=== PATIENT | male | born 1980 | race Hispanic/Latino ===

== ENCOUNTER 2016-11-27 10:54 | Emergency (ER) | payer OTHER ==
[2016-11-27 12:04] LABS: BASO # 0.1 K/mm3 (0.0-0.2); BASO % 0.6 % (0.0-1.0); EOS # 0.1 K/mm3 (0.0-0.50); EOS % 1.2 % (0.0-3.0); LARGE UNSTAINED CELL # 0.2 K/mm3 (0.0-0.4); LARGE UNSTAINED CELL % 2.2 % (0.0-4.0); LYMPH # 2.7 K/mm3 (1.5-4.5); LYMPH % 27.2 % (24.0-44.0); MEAN CORPUSCULAR HEMOGLOBIN 30.3 pg (27.0-33.0); MEAN CORPUSCULAR HGB CONC 34.9 g/dl (32.0-36.5); MEAN CORPUSCULAR VOLUME 86.7 fl (80.0-96.0); MONO # 0.6 K/mm3 (0.0-0.8); NEUTROPHILS # 5.6 K/mm3 (1.8-7.7); NEUTROPHILS % 61.8 % (36.0-66.0); PLATELET COUNT, AUTOMATED 341 k/mm3 (150-450); RED CELL DISTRIBUTION WIDTH 12.7 % (11.5-14.5); WHITE BLOOD COUNT 9.1 K/mm3 (4.0-10.0)
--- NOTE | 2016-11-27 12:16 | REP ---
CHEST, PA AND LATERAL: 11/27/2016. Clinical history: 36-year-old with chest pain. Findings. There were no prior studies. The lungs are well inflated and without infiltrate, effusion, atelectasis or masses. There is no mediastinal or hilar contour abnormality. The heart is not enlarged. The aorta is intact. The airway intact. No pneumothorax or pneumomediastinum. Bones without focal lesion. No free air under the diaphragm. Impression: 1. No acute cardiopulmonary change. Signed by Lon Kent MD 11/27/2016 12:48 P
[2016-11-27 12:18] LABS: ANION GAP 6 MEQ/L (8-16); BLOOD UREA NITROGEN 16 MG/DL (7-18); CALCIUM LEVEL 9.1 MG/DL (8.5-10.1); CARBON DIOXIDE LEVEL 30 MEQ/L (21-32); CHLORIDE LEVEL 96 MEQ/L (98-107); GLOMERULAR FILTRATION RATE > 60.0 (>60); GLUCOSE, FASTING 109 MG/DL (70-105); SODIUM LEVEL 132 MEQ/L (136-145)
--- NOTE | 2016-11-27 12:35 | ECGEPIP ---
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
--- NOTE | 2016-11-27 13:28 | EDDOCDS ---
Physician Documentation [facility] Name: Robin Christine Age: 36 yrs Sex: Male : 1980 Arrival Date: 11/27/2016 Time: 10:54 Bed 5 Private MD: Disposition: 11/27/16 13:03 Discharged to Home/Self Care. Impression: Chest pain, unspecified. - Condition is Stable. - Discharge Instructions: Nonspecific Chest Pain. - Prescriptions for Aspirin 81 mg - take 1 tablet by ORAL route once daily; 90 tablet. - Medication Reconciliation, Local Pharmacy Hours form. - Follow up: Layo Butler MD; When: Call to arrange an appointment; Reason: Further diagnostic work-up, Recheck today's complaints, Continuance of care. Follow up: Private Physician; When: 2 - 3 days; Reason: Continuance of care. - Problem is an ongoing problem. - Symptoms are unchanged. Historical: - Allergies: no known allergies; - Home Meds: 1. naproxen 500 mg Oral tab 1 tab 2 times per day 2. hydrochlorothiazide 12.5 mg Oral tab 1 tab once daily 3. Claritin 10 mg Oral tab 1 tab once daily 4. lisinopril 20 mg Oral tab 1 tab once daily 5. Norvasc 10 mg Oral tab 1 tab once daily 6. Elavil 25 mg nightly - PMHx: Hypertension; - PSHx: right index finger; - Social history: Smoking status: Patient uses tobacco products, heavy tobacco smoker. No barriers to communication noted, The patient speaks fluent Upper Sorbian, Speaks appropriately for age, Ethnicity: or Preferred Language: Slovak. - Family history: Not pertinent. - : The pt / caregiver states he / she is not on anticoagulants. Home medication list is obtained from the patient. - Exposure Risk Screening:: None identified. Vital Signs: 11/27 11:10 BP 125 / 73; Pulse 100; Resp 16; Temp 98.8(O); Pulse Ox 99% on R/A; Weight 97.07 kg / mlb1 214 lbs (R); Height 5 ft. 8 in. (172.72 cm) (R); Pain 0/10; 11:10 Body Mass Index 32.54 (97.07 kg, 172.72 cm) mlb1 MDM: 11:17 Marine Structural Welder/Pulse Ox/q 30 min VS ordered. br1 11:17 IV Saline Lock ordered. br1 11:17 Rhythm Strip to chart ordered. br1 11:17 Undress patient appropriately for examination ordered. br1 11:18 Basic Metabolic Profile Ordered. EDMS 11:18 CBC with Diff Ordered. EDMS 11:18 Cardiac Injury Profile Ordered. EDMS 11:18 Troponin Ordered. EDMS 11:19 Chest, 2 View (pa\E\lat) Ordered. EDMS 11:19 ECG WITH READING ER PHYS+CARDIAG ordered. EDMS 12:46 Financial registration complete. mm15 12:57 [facility] Payment Agreement was scanned into [employer] and attached to record. mm15 Signatures: Dispatcher [employer] EDMS Devyn Denny, DIETETIC ASSISTANT DIETETIC ASSISTANT Chepe Larkin RN RN mlb1 Kam Dempsey MD MD br1 Aissatou Henry RN RN hs1 Kendra Woods mm15 The chart was reviewed and I authenticate all verbal orders and agree with the evaluation and treatment provided.Attachments: 12:57 [facility] Payment Agreement mm15 MTDD
--- NOTE | 2016-11-27 13:28 | EDDOCDS ---
Nurse's Notes [facility] Name: Vasquez Christine Age: 36 yrs Sex: Male : 1980 Arrival Date: 11/27/2016 Time: 10:54 Bed 5 Private MD: Diagnosis: Chest pain, unspecified Presentation: 11/27 10:57 Presenting complaint: Chest pain and SOB over a week ago none in the past week, mlb1 abnormal EKG on 11/11/16. Adult Sepsis Screening: The patient does not have new or worsening altered mentation. Patient's respiratory rate is less than 22. Systolic blood pressure is greater than 100. Patient has a qSOFA score of 0- Negative Sepsis Screen. Suicide/Homicide risk assessment- the patient denies having any suicidal and/or homicidal ideations and does not present with any other emotional, behavioral or mental health complaints. Status: Patient is not a community service officer or dependent. Transition of care: patient was not received from another setting of care. 10:57 Acuity: CORINNE Level 3 mlb1 10:57 Method Of Arrival: Walkin/Carried/Asstd mlb1 Triage Assessment: 11:03 General: Appears in no apparent distress, comfortable, Behavior is appropriate for age, mlb1 cooperative. Pain: Denies pain. Pt Declines HIV testing. Historical: - Allergies: no known allergies; - Home Meds: 1. naproxen 500 mg Oral tab 1 tab 2 times per day 2. hydrochlorothiazide 12.5 mg Oral tab 1 tab once daily 3. Claritin 10 mg Oral tab 1 tab once daily 4. lisinopril 20 mg Oral tab 1 tab once daily 5. Norvasc 10 mg Oral tab 1 tab once daily 6. Elavil 25 mg nightly - PMHx: Hypertension; - PSHx: right index finger; - Social history: Smoking status: Patient uses tobacco products, heavy tobacco smoker. No barriers to communication noted, The patient speaks fluent Maltese, Speaks appropriately for age, Ethnicity: or Preferred Language: Maori. - Family history: Not pertinent. - : The pt / caregiver states he / she is not on anticoagulants. Home medication list is obtained from the patient. - Exposure Risk Screening:: None identified. Screenin:38 Screening information is obtained from the patient. Fall risk: No risks identified. hs1 Assistance ADL's: requires no assistance with activities of daily living. Abuse/DV Screen: The patient / caregiver reports he/she is: not in a situation that causes fear, pain or injury. Nutritional screening: No deficits noted. Advance Directives: There is no active DNR order. home support is adequate. Assessment: 11:37 General: Appears in no apparent distress, comfortable, Behavior is appropriate for age, hs1 cooperative. Pain: Denies pain. Neurological: No deficits noted. Respiratory: Airway is patent Respiratory effort is even, unlabored, Respiratory pattern is regular, symmetrical, Breath sounds are clear bilaterally. GI: Denies diarrhea, nausea, vomiting. Derm: Skin is pink, warm & dry. normal. 12:40 General: Appears in no apparent distress, Behavior is appropriate for age, cooperative. hs1 Pain: Denies pain. Cardiovascular: Rhythm is regular. Respiratory: No deficits noted. 13:26 Reassessment: Patient appears in no apparent distress at this time. Patient states hs1 feeling better. Patient states symptoms have improved. Cardiovascular: Rhythm is regular Chest pain is denied. Vital Signs: 11:10 BP 125 / 73; Pulse 100; Resp 16; Temp 98.8(O); Pulse Ox 99% on R/A; Weight 97.07 kg [facility] (R); Height 5 ft. 8 in. (172.72 cm) (R); Pain 0/10; 11:10 Body Mass Index 32.54 (97.07 kg, 172.72 cm) [facility] ED Course: 10:55 Patient visited by Taiwo Bright PCA. jrd 10:55 Patient moved to [facility] 10:56 Patient visited by Taiwo Bright PCA. d 11:00 Triage Initiated mlb1 11:03 Patient visited by Chepe Foy, RN. mlb1 11:10 Patient visited by Chepe Foy, RN. mlb1 11:10 Patient moved to [facility] 11:40 Patient visited by Martin Petit. l1 11:40 EKG done. (by ED staff). Reviewed by Kam Dempsey MD. jml1 11:47 Basic Metabolic Profile Sent. hs1 11:47 CBC with Diff Sent. hs1 11:47 Cardiac Injury Profile Sent. hs1 11:47 Troponin Sent. hs1 11:48 The patient / caregiver is instructed regarding the plan of care and ED course. hs1 11:48 Inserted saline lock: 20 gauge in right antecubital area and blood collected. The hs1 patient tolerated the procedure well. 12:25 Patient name changed from Vasquez\S\\S\Christine\S\ to Vasquez\S\ \S\Christine. EDMS 12:27 Patient visited by Aissatou Henry RN. hs1 12:43 Devyn Denny FNP is [facility]. ke 12:43 Patient visited by Devyn Denny FNP. ke 12:43 Patient visited by Devyn Denny FNP. ke 12:47 EKG-ADULT Returned. EDMS 12:51 Chest, 2 View (pa\E\lat) Returned. EDMS 12:57 [facility] Payment Agreement was scanned into [email or web address] and attached to record. mm15 13:03 Layo Butler MD is Referral Physician. ke 13:26 Discontinued IV lock intact, bleeding controlled, pressure dressing applied, No hs1 redness/swelling at site. No procedures done that require assistance. Order Results: Lab Order: Basic Metabolic Profile; [facility]' 11/27/16 11:37 Test: GLUCOSE, FASTING; Value: 109; Range: 70-105; Abnormal: Above high normal; Units: MG/DL; Status: F Test: BLOOD UREA NITROGEN; Value: 16; Range: 7-18; Units: MG/DL; Status: F Test: CREATININE FOR GFR; Value: 1.20; Range: 0.70-1.30; Units: MG/DL; Status: F Test: GLOMERULAR FILTRATION RATE; Value: > 60.0; Range: >60; Status: F Test: SODIUM LEVEL; Value: 132; Range: 136-145; Abnormal: Below low normal; Units: MEQ/L; Status: F Test: POTASSIUM SERUM; Value: 4.0; Range: 3.5-5.1; Units: MEQ/L; Status: F Test: CHLORIDE LEVEL; Value: 96; Range: 98-107; Abnormal: Below low normal; Units: MEQ/L; Status: F Test: CARBON DIOXIDE LEVEL; Value: 30; Range: 21-32; Units: MEQ/L; Status: F Test: ANION GAP; Value: 6; Range: 8-16; Abnormal: Below low normal; Units: MEQ/L; Status: F Test: CALCIUM LEVEL; Value: 9.1; Range: 8.5-10.1; Units: MG/DL; Status: F Test Note: ; Units are mL/min/1.73 m2 Chronic Kidney Disease Staging per NKF: Stage I & II GFR >=60 Normal to Mildly Decreased Stage III GFR 30-59 Moderately Decreased Stage IV GFR 15-29 Severely Decreased Stage V GFR <15 Very Little GFR Left ESRD GFR <15 on INFORMATION TECHNOLOGY DATA ANALYST Lab Order: CBC with Diff; SPEC'M 11/27/16 11:37 Test: WHITE BLOOD COUNT; Value: 9.1; Range: 4.0-10.0; Units: K/mm3; Status: F Test: RED BLOOD COUNT; Value: 4.31; Range: 4.30-6.10; Units: M/mm3; Status: F Test: HEMOGLOBIN; Value: 13.1; Range: 14.0-18.0; Abnormal: Below low normal; Units: g/dl; Status: F Test: HEMATOCRIT; Value: 37.4; Range: 42.0-52.0; Abnormal: Below low normal; Units: %; Status: F Test: MEAN CORPUSCULAR VOLUME; Value: 86.7; Range: 80.0-96.0; Units: fl; Status: F Test: MEAN CORPUSCULAR HEMOGLOBIN; Value: 30.3; Range: 27.0-33.0; Units: pg; Status: F Test: MEAN CORPUSCULAR HGB CONC; Value: 34.9; Range: 32.0-36.5; Units: g/dl; Status: F Test: RED CELL DISTRIBUTION WIDTH; Value: 12.7; Range: 11.5-14.5; Units: %; Status: F Test: PLATELET COUNT, AUTOMATED; Value: 341; Range: 150-450; Units: k/mm3; Status: F Test: NEUTROPHILS %; Value: 61.8; Range: 36.0-66.0; Units: %; Status: F Test: LYMPH %; Value: 27.2; Range: 24.0-44.0; Units: %; Status: F Test: MONO %; Value: 7.0; Range: 0.0-5.0; Abnormal: Above high normal; Units: %; Status: F Test: EOS %; Value: 1.2; Range: 0.0-3.0; Units: %; Status: F Test: BASO %; Value: 0.6; Range: 0.0-1.0; Units: %; Status: F Test: LARGE UNSTAINED CELL %; Value: 2.2; Range: 0.0-4.0; Units: %; Status: F Test: NEUTROPHILS #; Value: 5.6; Range: 1.8-7.7; Units: K/mm3; Status: F Test: LYMPH #; Value: 2.7; Range: 1.5-4.5; Units: K/mm3; Status: F Test: MONO #; Value: 0.6; Range: 0.0-0.8; Units: K/mm3; Status: F Test: EOS #; Value: 0.1; Range: 0.0-0.50; Units: K/mm3; Status: F Test: BASO #; Value: 0.1; Range: 0.0-0.2; Units: K/mm3; Status: F Test: LARGE UNSTAINED CELL #; Value: 0.2; Range: 0.0-0.4; Units: K/mm3; Status: F Lab Order: Cardiac Injury Profile; [facility] 11/27/16 11:37 Test: CPK CREATINE PHOSPHOKINASE; Value: 131; Range: 39-308; Units: U/L; Status: F Test: CK-MB VALUE MASS; Value: 1.0; Range: 0.0-3.6; Units: NG/ML; Status: F Test: MB/CK RELATIVE INDEX; Value: 0.76; Range: < OR =4; Status: F Test Note: ; DIAGNOSIS CRITERIA MMB ng/ml Relative Index (RI) NON-AMI < or = 5 N/A [place] > 5 < or = 4 AMI > 5 > 4 Lab Order: Troponin; SPEC'11/27/16 11:37 Test: TROPONIN I; Value: < 0.02; Range: < 0.10; Units: NG/ML; Status: F Test Note: ; Troponin I Reference Interval for [employer] LOCI: 99th Percentile= 0.00-0.045 ng/ml Risk Stratification: <= 0.10 ng/ml Decreased Risk for Adverse Clinical Events. 0.10-1.50 ng/ml Increased Risk for Adverse Clinical Events. Evaluation of additional criterion and/or repeat testing in 2-6 hours is suggested to rule out myocardial damage. >= 1.50 ng/ml Indicative of Myocardial Injury. Radiology Order: Chest, 2 View (pa\E\lat) Test: Chest, 2 View (pa\E\lat) REASON FOR EXAMINATION: Chest Pain; CHEST, PA AND LATERAL: 11/27/2016.; ; Clinical history: 36-year-old with chest pain.; ; Findings. There were no prior studies. The lungs are well inflated and without; infiltrate, effusion, atelectasis or masses. There is no mediastinal or hilar; contour abnormality. The heart is not enlarged. The aorta is intact. The; airway intact. No pneumothorax or pneumomediastinum. Bones without focal; lesion. No free air under the diaphragm.; ; Impression:; ; 1. 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 ke 13:26 Discharge Assessment: Patient awake, alert and oriented x 3. No cognitive and/or hs1 functional deficits noted. Patient verbalized understanding of disposition instructions. patient administered narcotics - no. Discharged to home ambulatory, with correction guards accompanying. The following High Risk Discharge criteria are identified: None. Condition: stable. Discharge instructions given to patient, home theatre technician, Instructed on discharge instructions, follow up and referral plans. medication usage, Demonstrated understanding of instructions, medications, Pt was receptive of discharge instructions/ teaching. Prescriptions given X 1. No special radiology studies were completed. Property sent home with patient. 13:27 Patient left the ED. hs1 Signatures: Dispatcher [employer] EDMS Devyn Denny, WRECKING CAR DRIVER WRECKING CAR DRIVER Chepe Larkin RN RN mlb1 Aissatou Henry RN RN hs1 Martin Petit jml1 Kendra Woods mm15 Taiwo Bright PCA TRAINING TECHNICIAN jrd MTDD
--- NOTE | 2016-11-29 14:29 | EDDOCDS ---
Nurse's Notes [facility] Name: Vasquez Christine Age: 36 yrs Sex: Male : 1980 Arrival Date: 11/27/2016 Time: 10:54 Bed 5 Private MD: Diagnosis: Chest pain, unspecified Presentation: 11/27 10:57 Presenting complaint: Chest pain and SOB over a week ago none in the past week, mlb1 abnormal EKG on 11/11/16. Adult Sepsis Screening: The patient does not have new or worsening altered mentation. Patient's respiratory rate is less than 22. Systolic blood pressure is greater than 100. Patient has a qSOFA score of 0- Negative Sepsis Screen. Suicide/Homicide risk assessment- the patient denies having any suicidal and/or homicidal ideations and does not present with any other emotional, behavioral or mental health complaints. 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 Transition of care: patient was not received from another setting of care. 10:57 Acuity: CORINNE Level 3 mlb1 10:57 Method Of Arrival: Walkin/Carried/Asstd mlb1 Triage Assessment: 11:03 General: Appears in no apparent distress, comfortable, Behavior is appropriate for age, mlb1 cooperative. Pain: Denies pain. Pt Declines HIV testing. Historical: - Allergies: no known allergies; - Home Meds: 1. naproxen 500 mg Oral tab 1 tab 2 times per day 2. hydrochlorothiazide 12.5 mg Oral tab 1 tab once daily 3. Claritin 10 mg Oral tab 1 tab once daily 4. lisinopril 20 mg Oral tab 1 tab once daily 5. Norvasc 10 mg Oral tab 1 tab once daily 6. Elavil 25 mg nightly - PMHx: Hypertension; - PSHx: right index finger; - Social history: Smoking status: Patient uses tobacco products, heavy tobacco smoker. No barriers to communication noted, The patient speaks fluent Swazi, Speaks appropriately for age, Ethnicity: or Preferred Language: Japanese. - Family history: Not pertinent. - : The pt / caregiver states he / she is not on anticoagulants. Home medication list is obtained from the patient. - Exposure Risk Screening:: None identified. Screenin:38 Screening information is obtained from the patient. Fall risk: No risks identified. hs1 Assistance ADL's: requires no assistance with activities of daily living. Abuse/DV Screen: The patient / caregiver reports he/she is: not in a situation that causes fear, pain or injury. Nutritional screening: No deficits noted. Advance Directives: There is no active DNR order. home support is adequate. Assessment: 11:37 General: Appears in no apparent distress, comfortable, Behavior is appropriate for age, hs1 cooperative. Pain: Denies pain. Neurological: No deficits noted. Respiratory: Airway is patent Respiratory effort is even, unlabored, Respiratory pattern is regular, symmetrical, Breath sounds are clear bilaterally. GI: Denies diarrhea, nausea, vomiting. Derm: Skin is pink, warm & dry. normal. 12:40 General: Appears in no apparent distress, Behavior is appropriate for age, cooperative. hs1 Pain: Denies pain. Cardiovascular: Rhythm is regular. Respiratory: No deficits noted. 13:26 Reassessment: Patient appears in no apparent distress at this time. Patient states hs1 feeling better. Patient states symptoms have improved. Cardiovascular: Rhythm is regular Chest pain is denied. Vital Signs: 11:10 BP 125 / 73; Pulse 100; Resp 16; Temp 98.8(O); Pulse Ox 99% on R/A; Weight 97.07 kg [facility] (R); Height 5 ft. 8 in. (172.72 cm) (R); Pain 0/10; 11:10 Body Mass Index 32.54 (97.07 kg, 172.72 cm) [facility] ED Course: 10:55 Patient visited by Taiwo Bright PCA. jrd 10:55 Patient moved to [facility] 10:56 Patient visited by Taiwo Bright PCA. d 11:00 Triage Initiated mlb1 11:03 Patient visited by Chepe Foy, RN. mlb1 11:10 Patient visited by Chepe Foy, RN. mlb1 11:10 Patient moved to [facility] 11:40 Patient visited by Martin Petit. l1 11:40 EKG done. (by ED staff). Reviewed by Kam Dempsey MD. jml1 11:47 Basic Metabolic Profile Sent. hs1 11:47 CBC with Diff Sent. hs1 11:47 Cardiac Injury Profile Sent. hs1 11:47 Troponin Sent. hs1 11:48 The patient / caregiver is instructed regarding the plan of care and ED course. hs1 11:48 Inserted saline lock: 20 gauge in right antecubital area and blood collected. The hs1 patient tolerated the procedure well. 12:25 Patient name changed from Vasquez\S\\S\Christine\S\ to Vasquez\S\ \S\Christine. EDMS 12:27 Patient visited by Aissatou Henry RN. hs1 12:43 [facility] ke 12:43 Patient visited by Devyn Denny FNP. ke 12:43 Patient visited by Devyn Denny FNP. ke 12:47 EKG-ADULT Returned. EDMS 12:51 Chest, 2 View (pa\E\lat) Returned. EDMS 12:57 [facility] Payment Agreement was scanned into [employer] and attached to record. mm15 13:03 Layo Butler MD is Referral Physician. ke 13:26 Discontinued IV lock intact, bleeding controlled, pressure dressing applied, No hs1 redness/swelling at site. No procedures done that require assistance. 15:10 T-Sheet-- Draft Copy was scanned into [employer] and attached to record. gb 15:39 ECG/EKG was scanned into [employer] and attached to record. gb 15:39 Trend VS was scanned into [employer] and attached to record. gb Attachments: 15:39 Trend VS gb Order Results: Lab Order: Basic Metabolic Profile; SPEC'M 11/27/16 11:37 Test: GLUCOSE, FASTING; Value: 109; Range: 70-105; Abnormal: Above high normal; Units: MG/DL; Status: F Test: BLOOD UREA NITROGEN; Value: 16; Range: 7-18; Units: MG/DL; Status: F Test: CREATININE FOR GFR; Value: 1.20; Range: 0.70-1.30; Units: MG/DL; Status: F Test: GLOMERULAR FILTRATION RATE; Value: > 60.0; Range: >60; Status: F Test: SODIUM LEVEL; Value: 132; Range: 136-145; Abnormal: Below low normal; Units: MEQ/L; Status: F Test: POTASSIUM SERUM; Value: 4.0; Range: 3.5-5.1; Units: MEQ/L; Status: F Test: CHLORIDE LEVEL; Value: 96; Range: 98-107; Abnormal: Below low normal; Units: MEQ/L; Status: F Test: CARBON DIOXIDE LEVEL; Value: 30; Range: 21-32; Units: MEQ/L; Status: F Test: ANION GAP; Value: 6; Range: 8-16; Abnormal: Below low normal; Units: MEQ/L; Status: F Test: CALCIUM LEVEL; Value: 9.1; Range: 8.5-10.1; Units: MG/DL; Status: F Test Note: ; Units are mL/min/1.73 m2 Chronic Kidney Disease Staging per NKF: Stage I & II GFR >=60 Normal to Mildly Decreased Stage III GFR 30-59 Moderately Decreased Stage IV GFR 15-29 Severely Decreased Stage V GFR <15 Very Little GFR Left ESRD GFR <15 on UX DESIGNER Lab Order: CBC with Diff; SPEC'M 11/27/16 11:37 Test: WHITE BLOOD COUNT; Value: 9.1; Range: 4.0-10.0; Units: K/mm3; Status: F Test: RED BLOOD COUNT; Value: 4.31; Range: 4.30-6.10; Units: M/mm3; Status: F Test: HEMOGLOBIN; Value: 13.1; Range: 14.0-18.0; Abnormal: Below low normal; Units: g/dl; Status: F Test: HEMATOCRIT; Value: 37.4; Range: 42.0-52.0; Abnormal: Below low normal; Units: %; Status: F Test: MEAN CORPUSCULAR VOLUME; Value: 86.7; Range: 80.0-96.0; Units: fl; Status: F Test: MEAN CORPUSCULAR HEMOGLOBIN; Value: 30.3; Range: 27.0-33.0; Units: pg; Status: F Test: MEAN CORPUSCULAR HGB CONC; Value: 34.9; Range: 32.0-36.5; Units: g/dl; Status: F Test: RED CELL DISTRIBUTION WIDTH; Value: 12.7; Range: 11.5-14.5; Units: %; Status: F Test: PLATELET COUNT, AUTOMATED; Value: 341; Range: 150-450; Units: k/mm3; Status: F Test: NEUTROPHILS %; Value: 61.8; Range: 36.0-66.0; Units: %; Status: F Test: LYMPH %; Value: 27.2; Range: 24.0-44.0; Units: %; Status: F Test: MONO %; Value: 7.0; Range: 0.0-5.0; Abnormal: Above high normal; Units: %; Status: F Test: EOS %; Value: 1.2; Range: 0.0-3.0; Units: %; Status: F Test: BASO %; Value: 0.6; Range: 0.0-1.0; Units: %; Status: F Test: LARGE UNSTAINED CELL %; Value: 2.2; Range: 0.0-4.0; Units: %; Status: F Test: NEUTROPHILS #; Value: 5.6; Range: 1.8-7.7; Units: K/mm3; Status: F Test: LYMPH #; Value: 2.7; Range: 1.5-4.5; Units: K/mm3; Status: F Test: MONO #; Value: 0.6; Range: 0.0-0.8; Units: K/mm3; Status: F Test: EOS #; Value: 0.1; Range: 0.0-0.50; Units: K/mm3; Status: F Test: BASO #; Value: 0.1; Range: 0.0-0.2; Units: K/mm3; Status: F Test: LARGE UNSTAINED CELL #; Value: 0.2; Range: 0.0-0.4; Units: K/mm3; Status: F Lab Order: Cardiac Injury Profile; SPEC'M 11/27/16 11:37 Test: CPK CREATINE PHOSPHOKINASE; Value: 131; Range: 39-308; Units: U/L; Status: F Test: CK-MB VALUE MASS; Value: 1.0; Range: 0.0-3.6; Units: NG/ML; Status: F Test: MB/CK RELATIVE INDEX; Value: 0.76; Range: < OR =4; Status: F Test Note: ; DIAGNOSIS CRITERIA MMB ng/ml Relative Index (RI) NON-AMI < or = 5 N/A [place] > 5 < or = 4 AMI > 5 > 4 Lab Order: Troponin; SPEC'M 11/27/16 11:37 Test: TROPONIN I; Value: < 0.02; Range: < 0.10; Units: NG/ML; Status: F Test Note: ; Troponin I Reference Interval for Siemens [place] LOCI: 99th Percentile= 0.00-0.045 ng/ml Risk Stratification: <= 0.10 ng/ml Decreased Risk for Adverse Clinical Events. 0.10-1.50 ng/ml Increased Risk for Adverse Clinical Events. Evaluation of additional criterion and/or repeat testing in 2-6 hours is suggested to rule out myocardial damage. >= 1.50 ng/ml Indicative of Myocardial Injury. Radiology Order: Chest, 2 View (pa\E\lat) Test: Chest, 2 View (pa\E\lat) REASON FOR EXAMINATION: Chest Pain; CHEST, PA AND LATERAL: 11/27/2016.; ; Clinical history: 36-year-old with chest pain.; ; Findings. There were no prior studies. The lungs are well inflated and without; infiltrate, effusion, atelectasis or masses. There is no mediastinal or hilar; contour abnormality. The heart is not enlarged. The aorta is intact. The; airway intact. No pneumothorax or pneumomediastinum. Bones without focal; lesion. No free air under the diaphragm.; ; Impression:; ; 1. 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 13:26 Discharge Assessment: Patient awake, alert and oriented x 3. No cognitive and/or hs1 functional deficits noted. Patient verbalized understanding of disposition instructions. patient administered narcotics - no. Discharged to home ambulatory, with correction guards accompanying. The following High Risk Discharge criteria are identified: None. Condition: stable. Discharge instructions given to patient, press bucker, Instructed on discharge instructions, follow up and referral plans. medication usage, Demonstrated understanding of instructions, medications, Pt was receptive of discharge instructions/ teaching. Prescriptions given X 1. No special radiology studies were completed. Property sent home with patient. 13:27 Patient left the ED. hs1 Signatures: Dispatcher [employer] EDMS Octavia Cormier, Reg Reg gb Devyn Denny, CONCRETE PILE DRIVER OPERATOR CONCRETE PILE DRIVER OPERATOR Chepe Larkin RN RN mlb1 Aissatou Henry RN RN hs1 Martin Petit jml1 Kendra Woods mm15 Taiwo Bright, MICHAEL TELEPHONIC NURSE CASE MANAGER jrd Chart Complete MTDD
--- NOTE | 2016-11-29 14:29 | EDDOCDS ---
Physician Documentation [facility] Name: Robin Christine Age: 36 yrs Sex: Male : 1980 Arrival Date: 11/27/2016 Time: 10:54 Bed 5 Private MD: Disposition: 11/27/16 13:03 Discharged to Home/Self Care. Impression: Chest pain, unspecified. - Condition is Stable. - Discharge Instructions: Nonspecific Chest Pain. - Prescriptions for Aspirin 81 mg - take 1 tablet by ORAL route once daily; 90 tablet. - Medication Reconciliation, Local Pharmacy Hours form. - Follow up: Layo Butler MD; When: Call to arrange an appointment; Reason: Further diagnostic work-up, Recheck today's complaints, Continuance of care. Follow up: Private Physician; When: 2 - 3 days; Reason: Continuance of care. - Problem is an ongoing problem. - Symptoms are unchanged. Historical: - Allergies: no known allergies; - Home Meds: 1. naproxen 500 mg Oral tab 1 tab 2 times per day 2. hydrochlorothiazide 12.5 mg Oral tab 1 tab once daily 3. Claritin 10 mg Oral tab 1 tab once daily 4. lisinopril 20 mg Oral tab 1 tab once daily 5. Norvasc 10 mg Oral tab 1 tab once daily 6. Elavil 25 mg nightly - PMHx: Hypertension; - PSHx: right index finger; - Social history: Smoking status: Patient uses tobacco products, heavy tobacco smoker. No barriers to communication noted, The patient speaks fluent Telugu, Speaks appropriately for age, Ethnicity: or Preferred Language: Hungarian. - Family history: Not pertinent. - : The pt / caregiver states he / she is not on anticoagulants. Home medication list is obtained from the patient. - Exposure Risk Screening:: None identified. Vital Signs: 11/27 11:10 BP 125 / 73; Pulse 100; Resp 16; Temp 98.8(O); Pulse Ox 99% on R/A; Weight 97.07 kg / mlb1 214 lbs (R); Height 5 ft. 8 in. (172.72 cm) (R); Pain 0/10; 11:10 Body Mass Index 32.54 (97.07 kg, 172.72 cm) mlb1 MDM: 11:17 [address] Pressman/Pulse Ox/q 30 min VS ordered. br1 11:17 IV Saline Lock ordered. br1 11:17 Rhythm Strip to chart ordered. br1 11:17 Undress patient appropriately for examination ordered. br1 11:18 Basic Metabolic Profile Ordered. EDMS 11:18 CBC with Diff Ordered. EDMS 11:18 Cardiac Injury Profile Ordered. EDMS 11:18 Troponin Ordered. EDMS 11:19 Chest, 2 View (pa\E\lat) Ordered. EDMS 11:19 ECG WITH READING ER PHYS+CARDIAG ordered. EDMS 12:46 Financial registration complete. mm15 12:57 [facility] Agreement was scanned into [employer] and attached to record. mm15 15:10 T-Sheet-- Draft Copy was scanned into [employer] and attached to record. gb 15:39 ECG/EKG was scanned into [employer] and attached to record. gb 15:39 Trend VS was scanned into [employer] and attached to record. gb Signatures: Dispatcher [employer] EDMS Octavia Cormier, Reg Reg gb Devyn Denny, WOOD GOUGER WOOD GOUGER Chepe Larkin RN RN mlb1 Kam Dempsey MD MD br1 Aissatou Henry RN RN hs1 Kendra Woods mm15 The chart was reviewed and I authenticate all verbal orders and agree with the evaluation and treatment provided.Attachments: 12:57 [facility] Payment Agreement mm15 15:10 T-Sheet-- Draft Copy gb 15:39 ECG/EKG gb Chart Complete MTDD
--- NOTE | 2016-11-29 14:29 | EDDOCDS ---
Physician Documentation [facility] Name: Robin Christine Age: 36 yrs Sex: Male : 1980 Arrival Date: 11/27/2016 Time: 10:54 Bed 5 Private MD: Disposition: 11/27/16 13:03 Discharged to Home/Self Care. Impression: Chest pain, unspecified. - Condition is Stable. - Discharge Instructions: Nonspecific Chest Pain. - Prescriptions for Aspirin 81 mg - take 1 tablet by ORAL route once daily; 90 tablet. - Medication Reconciliation, Local Pharmacy Hours form. - Follow up: Layo Butler MD; When: Call to arrange an appointment; Reason: Further diagnostic work-up, Recheck today's complaints, Continuance of care. Follow up: Private Physician; When: 2 - 3 days; Reason: Continuance of care. - Problem is an ongoing problem. - Symptoms are unchanged. Historical: - Allergies: no known allergies; - Home Meds: 1. naproxen 500 mg Oral tab 1 tab 2 times per day 2. hydrochlorothiazide 12.5 mg Oral tab 1 tab once daily 3. Claritin 10 mg Oral tab 1 tab once daily 4. lisinopril 20 mg Oral tab 1 tab once daily 5. Norvasc 10 mg Oral tab 1 tab once daily 6. Elavil 25 mg nightly - PMHx: Hypertension; - PSHx: right index finger; - Social history: Smoking status: Patient uses tobacco products, heavy tobacco smoker. No barriers to communication noted, The patient speaks fluent Divehi, Speaks appropriately for age, Ethnicity: or Preferred Language: Azeri. - Family history: Not pertinent. - : The pt / caregiver states he / she is not on anticoagulants. Home medication list is obtained from the patient. - Exposure Risk Screening:: None identified. Vital Signs: 11/27 11:10 BP 125 / 73; Pulse 100; Resp 16; Temp 98.8(O); Pulse Ox 99% on R/A; Weight 97.07 kg / mlb1 214 lbs (R); Height 5 ft. 8 in. (172.72 cm) (R); Pain 0/10; 11:10 Body Mass Index 32.54 (97.07 kg, 172.72 cm) mlb1 MDM: 11:17 Tare Weigher/Pulse Ox/q 30 min VS ordered. br1 11:17 IV Saline Lock ordered. br1 11:17 Rhythm Strip to chart ordered. br1 11:17 Undress patient appropriately for examination ordered. br1 11:18 Basic Metabolic Profile Ordered. EDMS 11:18 CBC with Diff Ordered. EDMS 11:18 Cardiac Injury Profile Ordered. EDMS 11:18 Troponin Ordered. EDMS 11:19 Chest, 2 View (pa\E\lat) Ordered. EDMS 11:19 ECG WITH READING ER PHYS+CARDIAG ordered. EDMS 12:46 Financial registration complete. mm15 12:57 [facility] Payment Agreement was scanned into [employer] and attached to record. mm15 15:10 T-Sheet-- Draft Copy was scanned into [employer] and attached to record. gb 15:39 ECG/EKG was scanned into [employer] and attached to record. gb 15:39 Trend VS was scanned into [employer] and attached to record. gb Signatures: Dispatcher [employer] EDMS Octavia Cormier, Reg Reg gb Devyn Denny, SURVEY WORKER SURVEY WORKER Chepe Larkin RN RN mlb1 Kam Dempsey MD MD br1 Aissatou Henry RN RN hs1 Kendra Woods mm15 The chart was reviewed and I authenticate all verbal orders and agree with the evaluation and treatment provided.Attachments: 12:57 [facility] Payment Agreement mm15 15:10 T-Sheet-- Draft Copy gb 15:39 ECG/EKG gb Chart Complete MTDD
== END 2016-11-27 13:27 | disposition home or self-care (01) ==
LOC: M ED 10:54
DX: R07.89 Other chest pain (principal); I10 Essential (primary) hypertension; Z72.0 Tobacco use; Z79.899 Other long term (current) drug therapy